=== PATIENT | male | born 1960 | race Two or more races ===

== ENCOUNTER 2024-02-03 17:28 | Emergency (ER) | payer MEDICAID ==
[~2024-02-03] VITALS: Ht 172.7 cm; Wt 125.0 kg
[2024-02-03] MEDS ORDERED: CLOT15CR35 TOP (18:29)
[2024-02-03] MEDS ORDERED: MICO14CR6 TOP (19:20)
[2024-02-03] MEDS ORDERED: TRAM50TA2 PO (19:20)
[2024-02-03 19:37] VITALS: BP 135/87; PULSE 69; RESP 18; TEMP 98.8; O2SAT 94
== END 2024-02-03 19:40 | disposition home or self-care (01) ==
LOC: ER 17:29
DX: M79.672 Pain in left foot (principal); M79.671 Pain in right foot; B35.3 Tinea pedis; M72.2 Plantar fascial fibromatosis; R60.9 Edema, unspecified; E11.9 Type 2 diabetes mellitus without complications; F17.200 Nicotine dependence, unspecified, uncomplicated; Z79.899 Other long term (current) drug therapy; Z79.2 Long term (current) use of antibiotics
CPT/HCPCS: 99283